=== PATIENT | male | born 2000 | race Two or more races ===

== ENCOUNTER 2021-07-03 13:08 | Emergency (ER) | payer MEDICAID, OTHER ==
[~2021-07-03] VITALS: Ht 167.6 cm; Wt 68.0 kg
[2021-07-03] MEDS ORDERED: NALOXONE HCL 1MG/ML 2ML SYRINGE ONE (13:15)
[2021-07-03] MEDS ORDERED: ONDANSETRON HCL 4 MG/2 ML VIAL ONE (13:18)
[2021-07-03] MEDS ORDERED: NALOXONE HCL 1MG/ML 2ML SYRINGE IV ONE (13:30)
[2021-07-03] MEDS ORDERED: ONDANSETRON HCL 4 MG/2 ML VIAL IV ONE ×2 (13:30→15:30)
[2021-07-03] MEDS ORDERED: NALOXONE HCL 2 MG in D5W 5% 495 ML IV ONE (13:30)
[2021-07-03 13:50] LABS: Eosinophils # (auto) 0 10 ^3/uL (0-0.8); Eosinophils % (auto) 0.1 % (0.0-7.0); Lymphocytes # (auto) 0.6 10 ^3/uL (0.4-5.4)
[2021-07-03 13:51] LABS: Basophils # (auto) 0.1 10 ^3/uL (0-0.2); Basophils % (auto) 0.3 % (0.0-2.0); Hematocrit 30.6 % (41.0-53.0); Hemoglobin 9.7 g/dL (13.5-17.5); Lymphocytes % (auto) 2.6 % (10.0-50.0); Mean Corpuscular Hemoglobin 20.4 pg (28.0-32.0); Mean Corpuscular Hgb Conc. 31.6 g/dL (32.0-36.0); Mean Corpuscular Volume 64.5 fL (80.0-100.0); Monocytes % (auto) 4.1 % (0.0-12.0); Neutrophils # (auto) 22.7 10 ^3/uL (1.6-8.6); Neutrophils % (auto) 92.9 % (37.0-80.0); Red Blood Cells 4.74 10^6/uL (4.5-5.90); Red Cell Distribution Width 17.3 % (11.8-14.3); White Blood Cell 24.5 10^3/uL (4.4-10.8)
[2021-07-03 14:07] LABS: Salicylate < 1.7 mg/dL (2.8-20.0)
[2021-07-03 14:08] LABS: Acetaminophen < 2.0 ug/mL (10-30); Albumin 3.6 g/dL (3.4-5.0); Calcium 8.1 mg/dL (8.5-10.1); Potassium 4.7 mmol/L (3.5-5.1)
[2021-07-03 14:11] LABS: BUN/Creatinine Ratio 9.8; Bilirubin, Total 0.5 mg/dL (0.2-1.0); Total Protein 6.8 g/dL (6.4-8.2)
[2021-07-03] MEDS ORDERED: D5W/ SOD CHL 0.9%/KCL 20MEQ 1,000 ML IV ONE (21:00)
[2021-07-03] MEDS ORDERED: SODIUM CHLORIDE 0.9% 2,050 ML IV ONE (21:00)
[2021-07-03] MEDS ORDERED: D5W/SOD CHLO 0.9% 1,000 ML IV ONE (21:15)
[2021-07-03 23:00] VITALS: BP 113/38
== END 2021-07-04 00:11 | disposition home or self-care (01) ==
LOC: ER 13:08
DX: T40.2X1A Poisoning by other opioids, accidental (unintentional), initial encounter (principal); R41.82 Altered mental status, unspecified; R94.31 Abnormal electrocardiogram [ECG] [EKG]; X58.XXXA Exposure to other specified factors, initial encounter; Y93.89 Activity, other specified; Y92.89 Other specified places as the place of occurrence of the external cause; Y99.8 Other external cause status
CPT/HCPCS: 36415; 71045; 80053; 80320; 80329; 85025; 93005; 96361; 96374; 96375; 96376; 99285; J2310; J2405; J7030; J7060